=== PATIENT | male | born 1960 | race Caucasian/White ===

== ENCOUNTER 2020-11-28 19:44 | Emergency (ER) | payer OTHER, SELFPAY ==
[2020-11-28 19:45] VITALS: BP 164/106; PULSE 76; RESP 15; TEMP 37; O2SAT 95; BMI 42.6
--- NOTE | 2020-11-28 20:05 | EX.ED.DYSGE1 ---
HPI History of Present Illness Chief Complaint: Other, Pain/Inj Narrative Narrative: Patient presents with swelling on the left side of his face over his parotid gland. He states this started today while he was eating pizza. He states he has been milking it and the swelling will go down and he can feel secretions in his mouth. He does not have any symptoms. He has no fever. He states the pain is minor. He is able to swallow. He denies any trauma. PFSH PFSH Allergy/AdvReac Type Severity Reaction Status Date / Time Penicillins Allergy PT UNSURE Verified 11/28/20 19:49 OF REACTION mold AdvReac PT UNSURE Verified 11/28/20 19:49 OF REACTION Social History Smoking Status: Current every day smoker tobacco type: cigarettes ROS ROS ED Constitutional Constitutional ED: Denies chills, fever(s) or sweats Eyes Eyes: Denies blurry vision or change in vision ENT ENT ED: Reports other Details: Left facial swelling over parotid gland ; Denies ear pain, rhinorrhea or sore throat Cardiovascular Cardiovascular: Denies chest pain, palpitations or racing heartbeat Respiratory/Chest Respiratory/Chest: Denies cough, dyspnea or sputum Gastrointestinal Gastrointestinal: Denies abdominal pain, constipation, diarrhea or vomiting Genitourinary Genitourinary ED: Denies dysuria, hematuria or urinary frequency Musculoskeletal Musculoskeletal: Denies arthralgias, myalgias or neck pain Integumentary Denies abscess, Abrasions or rash Neurologic Neurologic: Denies headache(s), paresthesias or weakness Psychiatric Psychiatric: Denies anxiety, depression, suicidal ideation or suicidal thoughts Endocrine Endocrinology: Denies polydipsia or polyuria EXAM Physical Exam Const Vital Signs: 11/28/20 19:45 Temperature 98.6 F Temperature Source Temporal Pulse Rate 76 Respiratory Rate 15 Blood Pressure 164/106 H Blood Pressure Mean 125 Pulse Ox 95 Oxygen Delivery Method Room Air General Appearance ED: Negative for pallor HEENT Reports normocephalic, head/scalp atraumatic and moist mucous membranes HEENT Narrative: Facial swelling over parotid gland. Patient is able to actively milk this and make the size go down. It is minimally tender. Negative for trauma Eyes PERRL and EOMs intact bilaterally Neck no lymphadenopathy and supple Chest Wall inspection of chest normal and palpation of chest normal Resp normal respiratory effort and clear to auscultation bilaterally Auscultation: Negative for rales, rhonchi or wheezes Cardio regular rate and regular rhythm Narrative: Deferred Neuro oriented x3 and CN's II-XII intact bilaterally Sensorium / Orientation: alert Motor Exam: strength 5/5 throughout Psych mental status grossly normal Attitude: No agitated Skin no rashes or lesions noted and no wounds General Skin Exam: Negative for jaundice or pallor MDM MDM MDM Narrative Medical decision making narrative: Patient presents with swelling of his parotid gland. I do believe he likely has a parotid gland stone. He is counseled to continue to milk this. He'll use hot compresses as well. He is counseled to use sour candies. If he has any issues he is to return to the ED. Patient stable for discharge at this time. Impression: 1. Left parotid duct stone Discharge Plan Triage Chief Complaint: Other, Pain/Inj ED Provider: Provider,Ed Physician Dx/Rx/DC Orders Instructions: ED Salivary Gland Stones Disposition Disposition: Home, self care
[2020-11-28 20:48] VITALS: BP 164/84; PULSE 78; RESP 15; O2SAT 98
== END 2020-11-28 20:50 | disposition home or self-care (01) ==
LOC: ED 20:48
PROVIDERS: Emergency Provider Student in an Organized Health Care Education/Training Program
DX: K11.5 Sialolithiasis (principal); F17.210 Nicotine dependence, cigarettes, uncomplicated; Z79.899 Other long term (current) drug therapy
CPT/HCPCS: 99283

== ENCOUNTER 2021-06-06 06:54 | Emergency (ER) | payer OTHER, SELFPAY ==
[2021-06-06 06:54] VITALS: BP 188/102; PULSE 79; RESP 20; TEMP 36.9; O2SAT 96; BMI 42.9
[2021-06-06 06:56] VITALS: BP 188/102; PULSE 77; RESP 18; TEMP 36.9; O2SAT 95
--- NOTE | 2021-06-06 07:26 | EX.ED.DYSGE1 ---
HPI History of Present Illness Chief Complaint: General Illness Informant: patient Onset/Context/Timing Onset: Days Context: Gradual Onset Narrative Narrative: Patient presents secondary to Covid status. Patient states that he went to a friend's for Thanksgiving last week. He received a phone call on Monday that they tested positive for Covid. He took a rapid test that day that was negative but then was tested at [facility] in [place] on and tested positive. On Monday, 2 days ago, patient developed some mild body aches, cough, diarrhea. He has had low-grade fever. He is unvaccinated. [facility] Medical History CPAP (continuous positive airway pressure) dependence Hydrocele Hypertension Sleep apnea Smoker Home Medications guaifenesin [Mucinex] 600 mg PO BID 11/28/20 [History Last Taken Unknown] hydrochlorothiazide 25 mg PO DAILY 11/28/20 [History Last Taken Unknown] lisinopril 40 mg PO DAILY 11/28/20 [History Last Taken Unknown] montelukast [Singulair] 10 mg PO DAILY 11/28/20 [History Last Taken Unknown] verapamil 240 mg PO BID 11/28/20 [History Last Taken Unknown] dexamethasone [Decadron] 6 mg PO DAILY #10 tab 06/06/21 [Rx Last Taken Unknown] Allergy/AdvReac Type Severity Reaction Status Date / Time Penicillins Allergy PT UNSURE Verified 06/06/21 06:58 OF REACTION mold AdvReac PT UNSURE Verified 06/06/21 06:58 OF REACTION Surgical History History of placement of ear tubes History of tonsillectomy and adenoidectomy Social History Smoking Status: Current every day smoker tobacco type: cigarettes ROS ROS ED Constitutional Constitutional ED: Reports fever(s); Denies chills Eyes Eyes: Denies change in vision ENT ENT ED: Denies sore throat Cardiovascular Cardiovascular: Denies chest pain Respiratory/Chest Respiratory/Chest: Reports cough and dyspnea Gastrointestinal Gastrointestinal: Reports diarrhea; Denies abdominal pain, nausea or vomiting Genitourinary Genitourinary ED: Denies dysuria Musculoskeletal Musculoskeletal: Reports myalgias; Denies back pain Integumentary Denies rash Neurologic Neurologic: Denies headache(s) or weakness Allergic/Immunologic Allergic/Immunologic ED: Denies urticaria EXAM Physical Exam Const Vital Signs: 06/06/21 06:54 06/06/21 06:56 06/06/21 08:00 Temperature 98.5 F 98.5 F Temperature Source Temporal Temporal Pulse Rate 79 77 Respiratory Rate 20 H 18 Respiratory Effort Short of Breath Respiratory Pattern Normal Blood Pressure 188/102 H 188/102 H Blood Pressure Mean 130 130 Pulse Ox 96 95 Oxygen Delivery Method Room Air Room Air Positive obese Nutritional Appearance: obese HEENT Reports moist mucous membranes Eyes PERRL and EOMs intact bilaterally Neck supple Chest Wall inspection of chest normal and palpation of chest normal Resp normal respiratory effort Auscultation: diminished lung sounds Cardio regular rate and regular rhythm GI normal to inspection, nondistended, normoactive bowel sounds and non-tender Palpation: soft Extremity normal to inspection Neuro oriented x3 Sensorium / Orientation: alert Psych mental status grossly normal Skin no rashes or lesions noted MDM MDM MDM Narrative Medical decision making narrative: Portable chest x-ray obtained. Patient had a walking pulse ox obtained and he maintained at 95%. Lab Data Attestation: I reviewed the patient's lab results. Labs: Laboratory Results - last 24 hr 06/06/21 06/06/21 08:50 08:50 WBC 4.7 RBC 5.07 Hgb 15.0 Hct 44.2 MCV 87.2 MCH 29.6 MCHC 33.9 RDW Std Deviation 37.7 RDW Coeff of Beth 11.9 Plt Count 76 L MPV 11.3 Immature Gran % (Auto) 0.400 Neut % (Auto) 48.9 Lymph % (Auto) 37.8 Lamb % (Auto) 12.7 H Eos % (Auto) 0.0 Baso % (Auto) 0.2 Absolute Neuts (auto) 2.3 Absolute Lymphs (auto) 1.79 Nucleated RBC % 0 Differential Comment SCANNED Platelet Estimate MOD DEC Sodium 139 Potassium 4.2 Chloride 107 Carbon Dioxide 29.0 Anion Gap 3 L BUN 14 Creatinine 1.08 Estim Creat Clear Calc 78.44 Est GFR (MDRD) Af Amer 90 Est GFR (MDRD) Non-Af 74 BUN/Creatinine Ratio 13.0 Glucose 95 Calcium 8.5 Radiography Chest X-Ray - ED: 1 View, Read by ED Physician and Chronic Changes Diagnostic Testing: Clinical Impression(s) from Imaging Studies Chest X-Ray 06/06/21 07:32 IMPRESSION: Widened mediastinum. Rightward deviation of the trachea, with significant tracheal narrowing secondary to the large upper mediastinal mass. Consider thyroid enlargement lymphadenopathy, or other mass. Indeterminate prominent appearance of the right hilar soft tissues versus mass and/or focal round infiltrate. Recommend further evaluation with CT scan of the chest. Electronically Signed: Mary Manuel MD at 8:19 EST Tel , Service support , ADDENDUM: 06/06/21 0834 IMPRESSION: Widened mediastinum. Rightward deviation of the trachea, with significant tracheal narrowing secondary to the large upper mediastinal mass. Consider thyroid enlargement lymphadenopathy, or other mass. Indeterminate prominent appearance of the right hilar soft tissues versus mass and/or focal round infiltrate. Recommend further evaluation with CT scan of the chest. N.B. : The above Results were Read Back by Mary Manuel MD to , AA, and understanding confirmed on 06/06/2021 08:28:02 (ET). Electronically Signed: Mary Manuel MD at 8:19 EST Tel , Service support , Chest CTA 06/06/21 08:22 IMPRESSION: No pulmonary embolism. No aortic dissection. There is an abnormal large masslike enlargement of the left thyroid gland that is partially seen on this study. It measures at least 8 x 7 x 6 cm extended down into the mediastinum causing at least 50% narrowing of the airway over 5 cm segment. It also partially effaces the vascular and venous structures of the upper mediastinum. Recommend correlation with thyroid laboratory values consideration for ultrasound and/or nuclear medicine study. There are multifocal patchy groundglass opacities in the lungs that is suspicious for Covid viral pneumonia. Electronically Signed: Mary Manuel MD at 10:12 EST Tel , Service support , Treatment and Re-Evaluation Comments:: Initial chest x-ray revealed chronic changes. There is right deviation of the airway with narrowing of the trachea. I spoke with the radiologist and they were concerned for mediastinal mass. In light of this blood work was obtained along with CTA of the chest. There is a large masslike enlargement of the left thyroid gland causing at least 50% narrowing of the airway over a 5 cm segment. These test results are discussed with the patient. It was stressed to him the importance of follow-up with surgery for a biopsy. He has made aware that this may be cancerous. At this point patient is requesting discharge. He will be given Decadron and referral for monoclonal antibodies given his positive Covid status. He will be referred to surgery for follow-up. Discharge Plan Triage Chief Complaint: General Illness ED Provider: Xiomara Toth Dx/Rx/DC Orders Clinical Impression: COVID-19, Thyroid mass Instructions: Coronavirus Disease 2019 (COVID-19): Overview, Coronavirus Disease 2019 (COVID-19): Caring for Yourself or Others, Common Thyroid Problems Prescriptions: New dexamethasone [Decadron] 6 mg tablet 6 mg PO DAILY Qty: 10 RF: 0 No Action verapamil 240 mg Tablet Extended Release 240 mg PO BID RF: 0 montelukast [Singulair] 10 mg Tablet 10 mg PO DAILY RF: 0 hydrochlorothiazide 25 mg Tablet 25 mg PO DAILY RF: 0 lisinopril 40 mg Tablet 40 mg PO DAILY RF: 0 guaifenesin [Mucinex] 600 mg Tablet Extended Release 12hr 600 mg PO BID RF: 0 Other Ambulatory Orders: COVID Outpatient Monoclonal Antibody Referral (Routine) Timeframe: 1 Day Facility: [facility] - Location: [facility] Ordered By: Dr. Xiomara Toth Primary Care Provider: Care Physician,No Primary Referrals: Stephanie Lorenzo MD [STAFF PHYSICIAN] - As soon as possible Care Physician,No Primary [Primary Care Provider] - Activity Restrictions/Additional Instructions: As discussed, your work-up reveals a large thyroid mass. This may be cancerous. This does require a biopsy. Please follow-up with the surgeon as soon as possible for this. Disposition Disposition: Home, Self Care
--- NOTE | 2021-06-06 07:32 | RAD_ITS ---
We are attempting to reach an attending provider to discuss findings. An addendum with communication details will be sent when the communication is complete. STUDY: X-RAY CHEST REASON FOR EXAM: Male, 61 years old. Cough, covid TECHNIQUE: Single AP portable view of the chest. COMPARISON: None. FINDINGS: The interstitial markings are prominent. There is right perihilar focal density that may measure up to 2.9 x 2.8 cm. There is no demonstrated pleural abnormality. There is mild cardiac enlargement. There is an abnormal appearance of the trachea with narrowing and rightward deviation secondary to mass effect. There is a masslike density within the upper mediastinum. Normal visualized pulmonary arteries. There is atherosclerotic calcification of the aortic arch with tortuosity. There are diffuse degenerative changes of the visualized thoracic spine. Normal visualized ribs, clavicles, and shoulders. There is no demonstrated abnormality of the visualized soft tissue structures of the upper abdomen. RAD/Chest 1 View (Portable) IMPRESSION: Widened mediastinum. Rightward deviation of the trachea, with significant tracheal narrowing secondary to the large upper mediastinal mass. Consider thyroid enlargement lymphadenopathy, or other mass. Indeterminate prominent appearance of the right hilar soft tissues versus mass and/or focal round infiltrate. Recommend further evaluation with CT scan of the chest. Electronically Signed: Mary Manuel MD at 8:19 EST Tel , Service support ,
[2021-06-06 08:00] VITALS: O2SAT 95
--- NOTE | 2021-06-06 08:22 | CT_ITS ---
STUDY: CTA CHEST REASON FOR EXAM: Male, 61 years old. Mediastinal mass -- see CXR report RADIATION DOSAGE (If Supplied By Facility): CTDIvol = ( 17.42 ) mGy, DLP = ( 571.91 ) mGycm TECHNIQUE: The examination was performed with the intravenous administration of IV 100mL [id number]-300. Post-processing of the angiographic images was performed, with multiplanar reformation and 3D reconstruction. Individualized dose optimization techniques were used for this CT. COMPARISON: June 06, 2021 chest x-ray FINDINGS: Normal enhancement of the main pulmonary artery and right and left pulmonary arteries. Normal enhancement of the bilateral peripheral pulmonary arteries. There is no demonstrated pulmonary embolism. There is tortuosity of the aortic arch and descending thoracic aorta. There is no demonstrated aortic dissection. Normal heart and pericardium. There is a right-sided precarinal 2.3 x 1.4 cm partially fat filled lymph node. There is a nonspecific AP window lymph node measuring 8 mm. There is a subcarinal lymph node measuring 1.5 cm. There is a partially visualized large left thyroid mass extending down into the left side of the mediastinum causing at least 50% narrowing of the airway over a 5 cm segment. This partially seen on this study but measures at least 8 x 7 x 6 cm. It is inhomogeneous and somewhat low attenuating compared to the right side thyroid which appears to be of normal size. This large mass pushes the left side carotid artery outward causes downward effacement of the left subclavian. It also touches on the innominate artery. There are multifocal groundglass opacities in the lungs with a scattered distribution with right lung predominance. There is a focal patchy consolidation within the right upper lobe adjacent to the hilum that likely represented a density seen on the chest x-ray. Normal pleura. Normal chest wall structures. There are degenerative changes of thoracic spine. There is hepatic steatosis. CT/CTA Chest W/WO Contrast IMPRESSION: No pulmonary embolism. No aortic dissection. There is an abnormal large masslike enlargement of the left thyroid gland that is partially seen on this study. It measures at least 8 x 7 x 6 cm extended down into the mediastinum causing at least 50% narrowing of the airway over 5 cm segment. It also partially effaces the vascular and venous structures of the upper mediastinum. Recommend correlation with thyroid laboratory values consideration for ultrasound and/or nuclear medicine study. There are multifocal patchy groundglass opacities in the lungs that is suspicious for Covid viral pneumonia. Electronically Signed: Mary Manuel MD at 10:12 EST Tel , Service support ,
[2021-06-06 09:06] LABS: Absolute Lymphocyte Count 1.79 X10^3/uL (0.83-4.51); Absolute Neutrophil Count 2.3 X10^3/uL (2.0-7.7); Basophil# 0.01 X10^3/uL; Basophil% 0.2 % (0-1); Hematocrit 44.2 % (40-54); Lymphocyte # 1.79 X10^3/ul (0.83-4.51); Lymphocyte % 37.8 % (19-41); Mean Corp Hgb Conc 33.9 g/dL (32-36); Mean Corpuscular Hgb 29.6 pg (27.0-32.0); Mean Corpuscular Volume 87.2 fL (80-94); Mean Platelet Vol. 11.3 fl (6.2-12.0); Monocyte% 12.7 % (0-10); NRBC Flagged by Analyzer 0 % (0-5); Neutrophil # 2.32 X10^3/uL (2.7-7.7); Neutrophil % 48.9 % (47-70); POSITIVE COUNT YES; Platelet Count 76 K/mm3 (150-450); RBC Distribution Width CV 11.9 % (11.6-14.6); RBC Distribution Width SD 37.7 fl (35.1-43.9); Red Blood Count 5.07 M/mm3 (4.6-6.2); White Blood Count 4.7 K/mm3 (4.4-11.0)
[2021-06-06 09:07] LABS: Differential Indicated SCAN CRITERIA MET
[2021-06-06 09:12] LABS: Anion Gap 3 (5-15); BUN 14 mg/dL (7-18); Calcium,Total 8.5 mg/dL (8.5-10.1); Chloride 107 mmol/L (98-107); Creatinine, Serum 1.08 mg/dL (0.70-1.30); EST Glomerular Filtration Rate 74 mL/min (>60); Est Glom Filt Rate - Afr Amer 90 mL/min (>60); Estimated Creatinine Clearance 78.44 ml/min; Glucose 95 mg/dL (74-106); Potassium 4.2 mmol/L (3.5-5.1); Sodium Level 139 mmol/L (136-145)
[2021-06-06 09:30] LABS: Differential Comment SCANNED; Platelet Estimate MOD DEC (ADEQ)
[2021-06-06 10:47] VITALS: BP 162/93; PULSE 78; O2SAT 95
[2021-06-07 09:44] LABS: T3 Total - Triiodothyronine 0.86 ng/mL (0.6-1.81)
== END 2021-06-06 10:58 | disposition home or self-care (01) ==
PROVIDERS: Emergency Provider Emergency Medicine
DX: U07.1 COVID-19 (principal); E04.9 Nontoxic goiter, unspecified; F17.210 Nicotine dependence, cigarettes, uncomplicated; G47.30 Sleep apnea, unspecified; E66.9 Obesity, unspecified; I10 Essential (primary) hypertension; Z79.899 Other long term (current) drug therapy
CPT/HCPCS: 71045; 71275; 80048; 84439; 84443; 84480; 85025; 99285; Q9967; A4216

== ENCOUNTER 2021-06-08 16:36 | Outpatient (CLI) | payer OTHER, SELFPAY ==
[2021-06-08 16:47] VITALS: BP 190/95; PULSE 86; RESP 18; TEMP 37.4; O2SAT 95; BMI 42.8
[2021-06-08] MEDS: 0.9% Saline Lock 10 ML Syringe IV (17:01)
[2021-06-08 17:33] VITALS: BP 160/87; PULSE 79; RESP 16; TEMP 38.4; O2SAT 94
[2021-06-08] MEDS: Acetaminophen 325 MG Tablet 650 MG PO (17:37)
[2021-06-08 18:26] VITALS: BP 167/91; PULSE 76; RESP 16; TEMP 37.7; O2SAT 94
== END 2021-06-08 18:33 | disposition home or self-care (01) ==
LOC: MS3OUT 16:37 → MS3 16:38
PROVIDERS: Referring Provider Nurse Practitioner Adult Health; Visit Provider Nurse Practitioner Adult Health
DX: Z23 Encounter for immunization (principal); U07.1 COVID-19
CPT/HCPCS: J7050; M0245; Q0245; A4216

== ENCOUNTER 2021-06-15 10:07 | Emergency (ER) | payer OTHER, SELFPAY ==
[2021-06-15 10:08] VITALS: BP 178/110; PULSE 69; RESP 24; TEMP 36.2; O2SAT 88; BMI 42.8
--- NOTE | 2021-06-15 10:14 | ED.RN ---
AMBULATED INTO ED. SATS 83% RA. INCREASED TO 88% AFTER FEW MINUTES OF REST.
--- NOTE | 2021-06-15 10:24 | RAD_ITS ---
STUDY: X-RAY CHEST REASON FOR EXAM: Male, 61 years old. covid TECHNIQUE: Single AP portable view of the chest. COMPARISON: Comparison is made with prior study dated 03/07/2021. FINDINGS: EKG electrodes are seen. There now is evidence of diffuse patchy pulmonary infiltrates involving both lungs worse in the right hemithorax as compared to prior study. There is no demonstrated pleural abnormality. Normal size heart. Once again, there is a deviation of the trachea towards the right side with some density overlying the left paratracheal region. The differential diagnosis to consider should include enlarged thyroid with substernal extension versus mediastinal lymphadenopathy. Recent CT scan of the thorax, there is a massively enlarged left lobe of the thyroid. Normal visualized pulmonary arteries. Normal visualized aortic arch and descending thoracic aorta. There are diffuse degenerative changes of the visualized thoracic spine. Normal visualized ribs, clavicles, and shoulders. There is no demonstrated abnormality of the visualized soft tissue structures of the upper abdomen. RAD/Chest 1 View (Portable) IMPRESSION: Interval progression of bilateral pulmonary infiltrates worse in the right hemithorax. Soft tissue density causing deviation of the trachea towards the right-sided midline with narrowing of the tracheal air column. Electronically Signed: Reynaldo Chung MD at 10:52 EST , Service support ,
--- NOTE | 2021-06-15 10:25 | ED.VIS.DYS ---
HPI History of Present Illness Chief Complaint: Shortness of Breath Informant: patient Onset/Context/Timing Onset: Days Context: gradual Timing: Continuous Current Severity: Mild Maximum Severity: Mild Worsened by: Exertion and Coughing Relieved by: Nothing Associated Symptoms cough and green sputum Chest Pain: Positive for None Narrative Narrative: 11-year-old male day 12 of Covid. Status post monoclonal antibody therapy last Monday a week ago. He is currently on Decadron and 1 more days worth of that. Said on Monday started becoming short of breath. He does have a cough of productive green phlegm. He denies hemoptysis. No history of DVT or PE. PE Risk Factors: Negative for Cancer, OCP + Smoking + > 35, Prior DVT or PE, Recent immobilization, Recent surgery and Recent travel Prior similar symptoms: Yes Recent Illness/Hospitalization: No PFSH PFSH Medical History CPAP (continuous positive airway pressure) dependence Hydrocele Hypertension Sleep apnea Smoker Home Medications guaifenesin [Mucinex] 600 mg PO BID 11/28/20 [History Last Taken Unknown] hydrochlorothiazide 25 mg PO DAILY 11/28/20 [History Last Taken Unknown] lisinopril 40 mg PO DAILY 11/28/20 [History Last Taken Unknown] montelukast [Singulair] 10 mg PO DAILY 11/28/20 [History Last Taken Unknown] verapamil 240 mg PO BID 11/28/20 [History Last Taken Unknown] dexamethasone [Decadron] 6 mg PO DAILY #10 tab 06/06/21 [Rx Last Taken Unknown] dexamethasone [Decadron] 6 mg PO DAILY 10 Days #10 tab 06/15/21 [Rx Last Taken Unknown] Allergy/AdvReac Type Severity Reaction Status Date / Time Penicillins Allergy PT UNSURE Verified 06/15/21 10:10 OF REACTION mold AdvReac PT UNSURE Verified 06/15/21 10:10 OF REACTION Surgical History History of placement of ear tubes History of tonsillectomy and adenoidectomy Social History Smoking Status: Current every day smoker tobacco type: cigarettes ROS ROS ED ROS Narrative Cough. Shortness of breath. Myalgias. Review of Systems ROS Unobtainable: Denies due to encephalopathy Constitutional Constitutional ED: Denies fever(s) Eyes Eyes: Denies change in vision ENT ENT ED: Denies ear pain Cardiovascular Cardiovascular: Denies chest pain or palpitations Respiratory/Chest Respiratory/Chest: Reports cough, dyspnea and sputum Gastrointestinal Gastrointestinal: Reports diarrhea; Denies abdominal pain, nausea or vomiting Genitourinary Genitourinary ED: Denies dysuria Musculoskeletal Musculoskeletal: Reports myalgias Integumentary Denies rash Neurologic Neurologic: Denies headache(s) Psychiatric Psychiatric: Denies depression Endocrine Endocrinology: Denies polyuria Hematologic/Lymphatic Hematologic/Lymphatic: Denies easy bruising Allergic/Immunologic Allergic/Immunologic ED: Denies urticaria EXAM Physical Exam Narrative Exam Narrative: Noise male no acute distress. Vital signs stable except his pulse ox is 88% on room air is obviously hypoxic. HEENT exam unremarkable. Moist with membranes. Neck nontender no JVD. Lungs clear to auscultation bilaterally. Heart regular rhythm no murmur. Rate not 70. Abdomen soft nontender normal bowel sounds no peritoneal signs. Obese. Moving all 4 extremities. Calves nontender no edema. Neurologically is awake and alert with no focal motor deficits. Const Vital Signs: 06/15/21 10:08 06/15/21 10:28 06/15/21 10:43 Temperature 97.2 F L 97.2 F L Temperature Source Temporal Temporal Pulse Rate 69 64 Respiratory Rate 24 H 15 Respiratory Effort Short of Breath Labored Respiratory Depth Normal Respiratory Pattern Normal Blood Pressure 178/110 H 178/110 H Blood Pressure Mean 132 132 Pulse Ox 88 87 94 Oxygen Delivery Method Room Air Nasal Cannula Nasal Cannula Oxygen Flow Rate (L/min) 3 3 Positive well nourished, well developed and obese; Negative for cachectic, contractures or unkempt General Appearance ED: well developed and NAD; Negative for unkempt, cachectic, contractures or pallor Nutritional Appearance: obese; Negative for cachectic HEENT Reports moist mucous membranes atraumatic; Negative for trauma or tenderness Eyes PERRL and EOMs intact bilaterally Neck no lymphadenopathy, supple, no meningeal signs and no JVD General: Negative for tenderness Resp normal respiratory effort and clear to auscultation bilaterally Auscultation: Negative for rales, rhonchi or wheezes Cardio regular rate, regular rhythm, S1 normal heart sound, S2 normal heart sound and no murmurs GI non-tender, non-distended and no masses Auscultation: normoactive bowel sounds Palpation: soft; Negative for tender, guarding or rebound tenderness present Back/Spine no CVA tenderness and normal to inspection General Back: Negative for CVA tenderness Extremity normal to inspection General Extremety ED: Negative for edema or tenderness General Extremity: Negative for edema Neuro oriented x3 Sensorium / Orientation: alert, oriented to person, oriented to place and oriented to time; Negative for orientation impaired, confused, lethargic or stuporous Motor Exam: strength 5/5 throughout Psych mental status grossly normal Appearance: Negative for unkempt Thought Process: normal thought process Skin no wounds General Skin Exam: Negative for jaundice or pallor Lesions: no lesions Rashes: no rashes MDM MDM MDM Narrative Medical decision making narrative: Middle-aged male day 12 of Covid on Decadron and head monoclonal antibody therapy a week ago. Complaining shortness of breath with a pulse ox of 88. Screening labs and chest x-ray being obtained. Patient may be an outpatient candidate for home O2. Repeat exam at 12:15 PM patient doing well. Lungs on oxygen his pulse ox is in the mid 90s. He has an oxygen concentrator at home that he uses for sleep apnea. He was given a nasal cannula. I spoke to the hospitalist they said there is no other therapy they did offer him currently in the hospital unless he gets worse. He will continue on his Decadron and outpatient follow-up. Lab Data Attestation: I reviewed the patient's lab results. Lab results narrative: CBC unremarkable white count of 10. Hemoglobin 15.3. Electrolytes gap of 5 normal BUN and creatinine. Glucose 86. Chest x-ray consistent with Covid pneumonitis. Labs: Laboratory Results - last 24 hr 06/15/21 06/15/21 10:25 10:25 WBC 10.9 RBC 5.23 Hgb 15.3 Hct 45.0 MCV 86.0 MCH 29.3 MCHC 34.0 RDW Std Deviation 36.7 RDW Coeff of Beth 11.7 Plt Count 238 MPV 9.8 Immature Gran % (Auto) 1.900 H Neut % (Auto) 72.4 H Lymph % (Auto) 16.3 L [place] % (Auto) 8.2 Eos % (Auto) 0.7 Baso % (Auto) 0.5 Absolute Neuts (auto) 7.9 H Absolute Lymphs (auto) 1.77 Nucleated RBC % 0 Sodium 140 Potassium 3.5 Chloride 108 H Carbon Dioxide 27.0 Anion Gap 5 BUN 17 Creatinine 0.89 Estim Creat Clear Calc 95.18 Est GFR (MDRD) Af Amer 112 Est GFR (MDRD) Non-Af 93 BUN/Creatinine Ratio 19.0 Glucose 86 Calcium 9.4 Radiography Chest X-Ray - ED: 1 View, Read by ED Physician, Heart, Mediastinum, Bony Structures, No Acute Disease, Right Infiltrate and Left Infiltrate Diagnostic Testing: Clinical Impression(s) from Imaging Studies Chest X-Ray 06/15/21 10:24 IMPRESSION: Interval progression of bilateral pulmonary infiltrates worse in the right hemithorax. Soft tissue density causing deviation of the trachea towards the right-sided midline with narrowing of the tracheal air column. Electronically Signed: Reynaldo Chung MD at 10:52 EST , Service support , Chest x-ray consistent with Covid pneumonitis. Single view interpreted by myself and the radiologist. Radiologist also notices a soft cyst to density impinging on the trachea. Discharge Plan Triage Chief Complaint: Shortness of Breath ED Provider: Jose Guadalupe Newby Dx/Rx/DC Orders Clinical Impression: COVID-19, Hypoxia Instructions: Human Coronaviruses Prescriptions: New dexamethasone [Decadron] 6 mg tablet 6 mg PO DAILY 10 Days Qty: 10 RF: 0 No Action verapamil 240 mg Tablet Extended Release 240 mg PO BID RF: 0 montelukast [Singulair] 10 mg Tablet 10 mg PO DAILY RF: 0 hydrochlorothiazide 25 mg Tablet 25 mg PO DAILY RF: 0 lisinopril 40 mg Tablet 40 mg PO DAILY RF: 0 guaifenesin [Mucinex] 600 mg Tablet Extended Release 12hr 600 mg PO BID RF: 0 dexamethasone [Decadron] 6 mg tablet 6 mg PO DAILY Qty: 10 RF: 0 Primary Care Provider: Care Physician,No Primary Referrals: Care Physician,No Primary [Primary Care Provider] - Activity Restrictions/Additional Instructions: Plenty of fluids and rest. Off work the next 7 days. Continue on your Decadron daily. I wrote you another prescription. Use your home oxygen all the time. Return if you are feeling a lot worse. Disposition Disposition: Home, Self Care
[2021-06-15 10:28] VITALS: O2SAT 87; O2SAT 93
[2021-06-15 10:43] VITALS: BP 178/110; PULSE 64; RESP 15; TEMP 36.2; O2SAT 94
[2021-06-15 10:49] LABS: Absolute Lymphocyte Count 1.77 X10^3/uL (0.83-4.51); Absolute Neutrophil Count 7.9 X10^3/uL (2.0-7.7); Basophil# 0.05 X10^3/uL; Basophil% 0.5 % (0-1); Eosinophil# 0.08 X10^3/uL; Eosinophils% 0.7 % (0-5); Hemoglobin 15.3 g/dL (13.0-16.5); Lymphocyte # 1.77 X10^3/ul (0.83-4.51); Lymphocyte % 16.3 % (19-41); Mean Corpuscular Hgb 29.3 pg (27.0-32.0); Mean Platelet Vol. 9.8 fl (6.2-12.0); Monocyte# 0.89 X10^3/uL; Monocyte% 8.2 % (0-10); NRBC Flagged by Analyzer 0 % (0-5); Neutrophil # 7.88 X10^3/uL (2.7-7.7); Neutrophil % 72.4 % (47-70); Platelet Count 238 K/mm3 (150-450); RBC Distribution Width CV 11.7 % (11.6-14.6); RBC Distribution Width SD 36.7 fl (35.1-43.9); Red Blood Count 5.23 M/mm3 (4.6-6.2); White Blood Count 10.9 K/mm3 (4.4-11.0)
[2021-06-15 11:00] LABS: Anion Gap 5 (5-15); BUN 17 mg/dL (7-18); Calcium,Total 9.4 mg/dL (8.5-10.1); Chloride 108 mmol/L (98-107); Creatinine, Serum 0.89 mg/dL (0.70-1.30); EST Glomerular Filtration Rate 93 mL/min (>60); Est Glom Filt Rate - Afr Amer 112 mL/min (>60); Estimated Creatinine Clearance 95.18 ml/min; Glucose 86 mg/dL (74-106); Potassium 3.5 mmol/L (3.5-5.1); Sodium Level 140 mmol/L (136-145)
[2021-06-15 12:38] VITALS: PULSE 71; RESP 18; O2SAT 94
--- NOTE | 2021-06-15 12:38 | ED.RN ---
PT REQUIRES 3LNC. PT REPORTS THAT HE DOES NOT HAVE A PORTABLE HOME OXYGEN TANK, AND CANNOT GET ANYONE TO TAKE HIM HOME. DR COOK INFORMED, REPORTS HE IS OK WITH PT TRANSPORTING SELF HOME. PT INSISTS THAT HE CAN GET HOME AND REFUSES OTHER HELP TO GET HOME. PT GIVEN NASAL CANNULA FOR HIS OXYGEN TANK AT HOME. IV D/C AND COVERED WITH 2X2 GAUZE AND PAPER TAPE. PT AMBULATES OUT OF DEPT BY SELF.
== END 2021-06-15 12:45 | disposition home or self-care (01) ==
PROVIDERS: Emergency Provider Emergency Medicine
DX: U07.1 COVID-19 (principal); R09.02 Hypoxemia; F17.210 Nicotine dependence, cigarettes, uncomplicated; E66.9 Obesity, unspecified; G47.30 Sleep apnea, unspecified; I10 Essential (primary) hypertension; Z79.52 Long term (current) use of systemic steroids; Z79.899 Other long term (current) drug therapy
CPT/HCPCS: 71045; 80048; 85025; 99284; A4216